=== PATIENT | female | born 1975 | race Caucasian/White ===

== ENCOUNTER → 2018-01-14 | Day surgery (SDC) | payer OTHER, MEDICARE ==
[2008-04-14 17:18] VITALS: BP 111/73
[~2018-01-14] MED LIST: NAPROXEN500 M2 PO; NASONEX17 GM NASB; REGLAN10 M1 PO; ROBAXIN500 M1 PO; VITAMIN D250000 UNIT PO
--- NOTE | 2018-01-14 09:33 | Operative Report ---
Operative/Inv Procedure Report Surgery Date: 01/14/18 Name of Procedure: Diagnostic laparoscopy lysis of adhesions Pre-Operative Diagnosis: Pelvic pain Post-Operative Diagnosis: Adhesions Estimated Blood Loss: scant Surgeon/Molding Utility Worker: Bobbi White MD Anesthesia: general endotracheal tube, block Operative/Procedure Note Note: Procedure note patient was taken the operating room placed supine position after adequate induction general anesthesia via endotracheal tube patient placed in dorsolithotomy position the vagina from dorsal fashion bladder was catheterized examination under anesthesia performed CO2 tenaculum placed on the Intralipid cervix gentle downward traction performedcannula was left in place surgeon regowned and gloved at the level the umbilicus a sincision was made to allow for the entry of Veress needle Veress needle was left in place the abdomen was insufflated approximately 4 L of CO2 after negative drop test with normal saline to liver edge dullness at which point the Veress needle was removed a 10 mm trocar was inserted the umbilicus through that sheath laparoscope was placed under direct visualization a 5 mm port was placed 2 fingerbreadths of symptoms pubis in midline through that a on peritoneal washings were obtained and sent to pathology on at this point lysis of adhesions was attempted using a peanut there were dense scissors were used I at the end the case Andreia [facility] a was applied to the omentum to prevent further adhesions pictures were taken maximal CO2 was removed from the abdomen on since removed from the abdomen the incision the umbilicus was oversewn using 0 for the fascia 3 over the skin for both incisions Marcaine was injected underneath both incisions at the end the case Costa cannula was the patient was returned supine position she was awakened from anesthesia extubated and transferred recovery room awake alert with counts correct Findings: Until adhesions to the abdominal wall normal uterus normal ovaries bilaterally on the ovary on the left appears to be a streak ovary I there are 2 tiny cysts of Morgagni less than 1 cm
== END ==
LOC: STS 01-07 07:00
DX: R10.2 Pelvic and perineal pain (principal); K66.0 Peritoneal adhesions (postprocedural) (postinfection); Q50.5 Embryonic cyst of broad ligament; K21.9 Gastro-esophageal reflux disease without esophagitis
CPT/HCPCS: 88305; C9399; J0131; J1100; J2250; J2405